=== PATIENT | male | born 1995 | race Native Hawaiian/Other Pacific Islander ===

== ENCOUNTER 2017-02-26 01:25 | Emergency (ER) | payer OTHER ==
[~2017-02-26] VITALS: Ht 180.3 cm; Wt 64.5 kg
[2017-02-26 01:30] VITALS: BP 123/80; PULSE 108; RESP 16; TEMP 99.4; O2SAT 98
[2017-02-26 01:37] VITALS: BP 123/80; PULSE 108; RESP 16; TEMP 99.4; O2SAT 98
--- NOTE | 2017-02-26 02:08 | PD ---
HPI Chief Complaint: Eye Problems/Injury Time Seen by Provider: 02:04 Travel History International Travel<30 days: No Contact w/Intl Traveler<30days: No Traveled to known affect area: No History of Present Illness HPI The patient is a 21-year-old male that has had a mostly nonproductive cough, sore throat, low-grade fever and conjunctival injection starting in the right eye and now going into the left for approximately 4-5 days. The patient denies any foreign body sensation in the eye. There is no nausea, vomiting or diarrhea. He denies any shortness of breath. [facility] Past Medical History Medical History: Denies Significant Hx Influenza Vaccination: Yes Past Surgical History Eye Surgery: Yes (lasik) Social History Alcohol Use: No Tobacco Use: Yes (Hookah pipe) Substance Use: No Allergies-Medications (Allergen,Severity, Reaction): Coded Allergies: No Known Allergies (Unverified , 02/26/17) Review of Systems Except as stated in HPI: all other systems reviewed are Neg Physical Exam Narrative GENERAL: Well-nourished, well-developed patient in minimal apparent distress with his right eye discomfort. His vital signs show a temperature of 99.4 and heart rate of 108 but otherwise normal. SKIN: Focused skin assessment warm/dry. No skin rashes noted. HEAD: Normocephalic. EYES: No scleral icterus. Both conjunctiva show injection, right greater than left. Fluorescein staining reveals no corneal uptake. Pupils equal react light extraocular movements are normal. NECK: Supple, trachea midline. No JVD or lymphadenopathy. CARDIOVASCULAR: Regular rate and rhythm without murmurs, gallops, or rubs. RESPIRATORY: Breath sounds equal bilaterally. No accessory muscle use. Lungs clear to auscultation bilaterally. GASTROINTESTINAL: Abdomen soft, non-tender, nondistended. MUSCULOSKELETAL: No cyanosis, or edema. BACK: Nontender without obvious deformity. No CVA tenderness. ENT: Neither tympanic membrane can be seen due to heavy wax in both ears. The throat is erythematous without exudate or abscess. No enlarged nodes are present on the anterior cervical chain. Data Data Last Documented VS Vital Signs Date Time Temp Pulse Resp B/P (MAP) Pulse Ox O2 Delivery O2 Flow Rate FiO2 02/26/17 01:41 16 02/26/17 01:37 99.4 108 123/80 (94) 98 Orders Orders Group A Rapid Strep Screen (02/26/17 02:08) Strep Culture (Group A) (02/26/17 02:11) MDM Medical Decision Making Medical Screen Exam Complete: Yes Emergency Medical Condition: Yes Medical Record Reviewed: Yes Interpretation(s) The strep screen is negative for strep antigen. Differential Diagnosis Viral syndrome, viral pharyngitis, strep pharyngitis Narrative Course The patient has a viral syndrome with viral conjunctivitis. Plan: He will need to use warm compresses on the eyes and frequent handwashing so that he does not spread the disease. Additional Instructions: We discussed, follow-up with your primary care physician, use frequent handwashing and use warm compresses on the eyes. Med/Other Pt SpecificInfo: No Change to Meds Disposition: 01 DISCHARGE HOME Condition: Stable Lee Jonas MD Feb 26, 2017 02:08
[2017-02-26 02:44] VITALS: BP 139/87
== END 2017-02-26 03:06 | disposition home or self-care (01) ==
LOC: PHED 01:25
DX: B30.9 Viral conjunctivitis, unspecified (principal)
CPT/HCPCS: 87081; 87880; 99283